=== PATIENT | male | born 1960 | race Caucasian/White ===

== ENCOUNTER 2023-12-26 13:56 | Emergency (ER) | payer OTHER, SELFPAY ==
[2023-12-26] VITALS (7 sets, daily range): BP systolic 149–182; BP diastolic 88–135
[2023-12-26] MEDS: ZOFRAN 4 MG IV (14:36)
[2023-12-26] MEDS: DILAUDID 1 MG IV ×2 (14:36→15:15)
[2023-12-26] MEDS: NSS 1000 IV (14:37)
[2023-12-26 14:48] LABS: % Basophils 0.4 % (0-2); % Eosinophils 0.6 % (0-6); % Immature Granulocytes 0.4 % (0-0.5); % Monocytes 7.2 % (1.7-9.3); % Neutrophils 76.4 % (42.2-75.2); Absolute Eosinophils 0.1 10^3/uL (0-0.7); Absolute Lymphocytes 1.6 10^3/uL (1.2-3.4); Absolute Monocytes 0.8 10^3/uL (0.1-0.6); Absolute Neutrophils 8.2 10^3/uL (1.4-6.5); Hematocrit 43.2 % (39.0-52.0); Hemoglobin 15.2 g/dL (13.0-18.0); Mean Corp Hgb Conc. 35.2 g/dL (33.0-37.0); Mean Corpuscular Hgb 32.2 pg (27.0-31.0); Mean Corpuscular Volume 91.5 fL (80.0-94.0); Mean Platelet Volume 10.2 fL (7.4-10.4); Nucleated Red Blood Cells % 0 % (-); Platelet Count 261 10^3/uL (130-400); Red Blood Cell Count 4.72 10^6/uL (4.70-6.10); Red Cell Dist. Width 12.4 % (11.5-14.5); White Blood Cell Count 10.7 10^3/uL (4.8-10.8)
[2023-12-26 15:02] LABS: ALT (SGPT) 26 U/L (0-50); AST (SGOT) 27 U/L (17-59); Albumin 4.7 g/dl (3.5-5.0); Alkaline Phosphatase 92 U/L (38-126); Blood Urea Nitrogen 17 mg/dl (9-20); Calcium 9.5 mg/dl (8.4-10.2); Carbon Dioxide 26 mmol/L (22-30); Chloride 102 mmol/L (98-107); Glucose 143 mg/dl (70-99); Sodium 137 mmol/L (135-145); Total Bilirubin 0.8 mg/dl (0.2-1.3); Total Protein 8.3 g/dl (6.3-8.2); eGFR > 60.00
--- NOTE | 2023-12-26 17:02 | ED.GENMED ---
History of Present Illness
General
Chief Complaint: Flank Pain
Source: patient and significant other
Exam Limitations: none
Time Seen by Provider: 12/26/23 14:20
Travel History
Have you had any contact with someone who has COVID-19?: No
Do you have any symptoms of coronavirus? Fever > 100 degrees, chills, cough, shortness of breath, sore throat, loss of taste or smell, muscle aches, or headache?: No
History of Present Illness
History of Present Illness:
63-year-old male presents with acute right-sided flank pain that began around 11 AM. Family states he did a little discomfort earlier in the week. Denies vomiting or fevers. Pain is constant but does seem to wax and wane. has had kidney stones in
past. significant other states that the pt has htn and high chol but has not taken his meds.
Past History
Past History
ED Past Medical History: HTN, Hypercholesterolemia and Other (kidney stones)
ED Past Surgical History: Orthopedic
Phy Exam
Physical Exam
Physical Exam:
CONSTITUTIONAL Patient alert and oriented to person, place and time. Severe pain distress. Vital signs reviewed.
HEAD atraumatic, normocephalic.
EYES eyelids normal to inspection, Pupils equally round and reactive to light, Extraocular muscles intact, Conjunctiva normal, Sclera normal.
NECK normal range of motion, Trachea midline, no jugular venous distention.
RESPIRATORY CHEST No respiratory distress noted, Chest expansion equal
ABDOMEN abdomen nontender, Bowel sounds normal. No distention.
BACK normal inspection, no obvious deformities, no CVA tenderness, no rash
UPPER EXTREMITY range of motion normal, Motor strength normal, no cyanosis, no edema.
LOWER EXTREMITY range of motion normal, Motor strength normal, no cyanosis, no edema.
NEURO Speech normal, No focal motor deficits, Isabelle coma scale 15, Memory normal, Cranial Nerves intact to screening exam.
SKIN pale, mildly diaphoretic
Course
Orders/Labs/Results
Orders:
Orders
12/26/23 14:25
CT Abd/pel Without Iv Or Oral Stat
Comment:
Reason For Exam: R flank pain
0.9% Sodium Chloride 1000 ml [Nss] 1,000 ml IV BOLUS
HYDROmorphone [Dilaudid] 1 mg IV NOW STA
Ondansetron Injectable [Zofran] 4 mg IV NOW STA
12/26/23 14:35
Complete Blood Count/With Diff Urgent
Comprehensive Metabolic Panel Urgent
12/26/23 15:10
HYDROmorphone [Dilaudid] 1 mg IV NOW STA
12/26/23 16:46
Ketorolac [Toradol] 15 mg IV NOW STA
12/26/23 19:23
Urinalysis Reflex To Culture Urgent
Date Specimen was Collected: 12/26/23
Time Specimen was Collected: 19:00
Urine Microscopic Reflex Cult Urgent
Abnormal Lab Results
12/26/23 12/26/23
14:35 19:23
MCH 32.2 H pg
(27.0-31.0)
Absolute Neuts (auto) 8.2 H 10^3/uL
(1.4-6.5)
Absolute Monos (auto) 0.8 H 10^3/uL
(0.1-0.6)
Neutrophils % 76.4 H %
(42.2-75.2)
Lymphocytes % 15.0 L %
(20.5-51.1)
Glucose 143 H mg/dl
(70-99)
Total Protein 8.3 H g/dl
(6.3-8.2)
Urine Ketones 2+ A
(Negative)
Ur Occult Blood Reflex 3+ A
(Negative)
Urine Glucose Trace A
(Negative)
12/26/23 14:35
12/26/23 14:35
Vital Signs
Initial and Last Documented VS:
Initial Vital Signs
Temp Pulse Resp BP Pulse Ox
97.8 F 72 20 168/100 95
12/26/23 13:58 12/26/23 13:58 12/26/23 13:58 12/26/23 13:58 12/26/23 13:58
Last Documented Vital Signs
Temp Pulse Resp BP Pulse Ox
97.8 F 87 20 164/88 97
12/26/23 13:58 12/26/23 18:30 12/26/23 18:30 12/26/23 18:00 12/26/23 18:30
MDM/Problems Addressed
MDM/Problems Addressed:
Ureterolithiasis
*Radiology
Radiology exam reviewed: preliminary read by ED provider (No obvious AAA) and radiology read reviewed
*Pulse Oximetry
Patient hypoxic: no
*Critical Care Note
Total Time (30-74mins, 75-104mins- exclusive of procedures): Not Applicable
Data Reviewed
Source: patient and significant other
Further Testing Considered But Not Given:
Considered IV contrast but suspected renal stone and CT performed without IV contrast
Patient Management
Escalation/DeEscalation of care consider admission/obs:
Feels much better. Urology follow-up. Flomax. Pain control
ED Attending Note
-
Portions of this chart may have been created with voice recognition software.� Occasional wrong word or��sound alike� substitutions may have occurred due to the inherent limitations of voice recognition software.
Discharge Plan
Departure
Patient Disposition: Home (Routine Discharge)
Date of Disposition: 12/26/23
Time of Disposition: 19:45
Patient with high blood pressure during this ER visit?: Yes
Discharge Problem:
Nephrolithiasis
Instructions: Kidney Stones (DC), How to Strain Your Urine, BLOOD PRESSURE, Narcotic Pain Medication
Prescriptions:
New
hydrocodone-acetaminophen 5-325 mg tablet
1 tab PO Q4H PRN (Reason: Pain) Qty: 14 0RF
tamsulosin [Flomax] 0.4 mg capsule
0.4 mg PO HS Qty: 20 0RF
No Action
atorvastatin 10 mg Tablet
10 mg PO DAILY
lisinopril 10 mg Tablet
10 mg PO DAILY
Referrals:
Anupam Pinto MD [Family Provider] -
Abhijit Daniels MD [Active] -
Activity Restrictions/Additional Instructions:
Please drink plenty fluids. Please see urology in the next 3 to 5 days for follow-up and reevaluation. Return immediately for chest pain, shortness of breath, palpitations, weakness of any kind or any other concerns. Your blood pressure was noted
to be elevated today. Is very important that you take your recommended medications daily as uncontrolled hypertension can lead to serious medical complications.
Interventions
Interventions:
*Risk Screen - Suicide Last Done: 12/26/23 14:20
*General Assessment Last Done: 12/26/23 14:20
*Neglect/Abuse Screening Last Done: 12/26/23 14:20
*ED COVID-19 Vaccine History Last Done: 12/26/23 13:58
VN-Tfqfch-Ruwvhcsupd Assessment Last Done: 12/26/23 15:00
ED-Male Genitourinary Assessment Last Done: 12/26/23 15:00
Discharge Date and Time
Print Language: SWEDISH
[2023-12-26] MEDS: TORADOL 15 MG IV (17:08)
[2023-12-26 19:31] LABS: Urine Albumin Negative (Neg - Trace); Urine Bilirubin Negative (Negative); Urine Character Clear (Clear); Urine Color Yellow; Urine Glucose Trace (Negative); Urine Ketone 2+ (Negative); Urine Leukocyte Negative (Negative); Urine Nitrite Negative (Negative); Urine Occult Blood 3+ (Negative); Urine Urobilinogen Negative (Neg - 1+)
[2023-12-26 19:52] LABS: Urine Bacteria Few (Negative); Urine Mucus Few; Urine Squamous Cell 0-2 /LPF (Few); Urine White Cell 0-2 /HPF (0-5)
[2023-12-26 19:55] LABS: Urine Hyaline Cast 0-2 /LPF (0-2)
== END 2023-12-26 20:24 | disposition home or self-care (01) ==
LOC: EMR 13:56
PROVIDERS: EMERGENCY PHYSICIAN Emergency Medicine; FAMILY PHYSICIAN Family Medicine
DX: N13.2 Hydronephrosis with renal and ureteral calculous obstruction (principal); I10 Essential (primary) hypertension; E78.00 Pure hypercholesterolemia, unspecified; Z87.442 Personal history of urinary calculi
CPT/HCPCS: 99284; 96374; 96375 ×2; 96361; 96376; 74176; 80053; 81003; 81015; 85025

== ENCOUNTER 2023-12-27 03:18 | Emergency (ER) | payer OTHER, SELFPAY ==
[2023-12-27 03:21] VITALS: BP 193/102
[2023-12-27 03:53] LABS: % Basophils 0.3 % (0-2); % Eosinophils 0.1 % (0-6); % Immature Granulocytes 0.3 % (0-0.5); % Lymphocytes 9.1 % (20.5-51.1); % Monocytes 6.9 % (1.7-9.3); % Neutrophils 83.3 % (42.2-75.2); Absolute Lymphocytes 1.4 10^3/uL (1.2-3.4); Absolute Monocytes 1.1 10^3/uL (0.1-0.6); Hematocrit 43.2 % (39.0-52.0); Hemoglobin 15.4 g/dL (13.0-18.0); Mean Corp Hgb Conc. 35.6 g/dL (33.0-37.0); Mean Corpuscular Hgb 32.1 pg (27.0-31.0); Mean Platelet Volume 10.1 fL (7.4-10.4); Nucleated Red Blood Cells % 0 % (-); Platelet Count 270 10^3/uL (130-400); Red Cell Dist. Width 12.6 % (11.5-14.5); White Blood Cell Count 15.5 10^3/uL (4.8-10.8)
[2023-12-27] MEDS: DILAUDID 1 MG IV ×2 (03:56→07:44)
[2023-12-27 04:09] LABS: ALT (SGPT) 25 U/L (0-50); AST (SGOT) 32 U/L (17-59); Albumin 4.8 g/dl (3.5-5.0); Alkaline Phosphatase 90 U/L (38-126); Blood Urea Nitrogen 19 mg/dl (9-20); Calcium 9.5 mg/dl (8.4-10.2); Carbon Dioxide 23 mmol/L (22-30); Chloride 102 mmol/L (98-107); Glucose 154 mg/dl (70-99); Potassium 4.1 mmol/L (3.5-5.1); Sodium 137 mmol/L (135-145); Total Bilirubin 0.9 mg/dl (0.2-1.3); Total Protein 8.5 g/dl (6.3-8.2); eGFR 51.35
[2023-12-27 04:12] VITALS: BMI 28.9
[2023-12-27 04:14] VITALS: BP 145/85
[2023-12-27] MEDS: NSS 500 IV (04:42)
--- NOTE | 2023-12-27 05:12 | ED.GENMED ---
History of Present Illness
General
Chief Complaint: Flank Pain
Source: patient, previous radiology exam (CT abdomen pelvis yesterday showing 4 mm stone distal right ureter with mild hydronephrosis.) and previous hospital records (ED visit yesterday for similar complaint.)
Time Seen by Provider: 12/27/23 04:13
Nursing documentation reviewed up to this point in time: agreed with
Travel History
Have you had any contact with someone who has COVID-19?: No
Do you have any symptoms of coronavirus? Fever > 100 degrees, chills, cough, shortness of breath, sore throat, loss of taste or smell, muscle aches, or headache?: No
History of Present Illness
History of Present Illness:
This is a 63-year-old gentleman with history of hypertension, hyperlipidemia, kidney stones who presented to this ED yesterday afternoon with complaints of right flank pain that began yesterday around 11 AM.
CAT scan showed a 4 mm stone distal right ureter with mild hydronephrosis.
He was pain-free and comfortable after a small IV dose of Toradol as well as IV dose of Dilaudid.
A prescription for Vicodin and tamsulosin were sent to his pharmacy however pharmacy was closed prior to patient's discharge.
He awoke around midnight with return of moderate right flank pain and was given ibuprofen 800 mg around 2 AM. Thus far only minimal improvement in pain. He denies nausea nor vomiting, denies diaphoresis, denies fever nor chills.
He denies dysuria and urgency nor gross hematuria.
He has successfully passed kidney stones in the past perhaps 5 to 6 years ago and has never required urologic intervention.
He does admit to significant, near daily soda consumption.
Past History
Past History
ED Past Medical History: HTN, Hypercholesterolemia and Other (kidney stones)
ED Past Surgical History: Orthopedic
Social History
Tobacco: Non-smoker
Alcohol: None
Personal:
Living: with family
Employment: Retired
Family History
Family History: Other (Noncontributory)
Phy Exam
Physical Exam
Physical Exam:
GENERAL: 63-year-old gentleman appears his stated age, bright and alert, pleasant, appears in no acute distress. is accompanying.
EYE: anicteric
NECK: Supple, nontender, no meningismus, no significant adenopathy.
ENT: oral mucosa is moist. No rhinorrhea.
CARDIAC: Regular rate and rhythm. no murmur.
LUNGS: Clear breath sounds bilaterally, no acute respiratory distress, no wheezes/rales/rhonchi
ABDOMEN: Rotund, soft, nondistended, without focal tenderness, no r/g, minimal right CVA tenderness with percussion. Normoactive BS.
NEUROLOGICAL: Alert and oriented x3, no focal neuro deficits. Gait is steady.
SKIN: Warm and dry, normal color, skin intact. No rash.
MUSCULOSKELETAL: No C/C/E. peripheral pulses are full and equal b/l. No palpable tenderness.
PSYCH: Normal and appropriate interaction.
Course
Orders/Labs/Results
Orders:
Orders
12/27/23 03:44
CMP [Comprehensive Metabolic Panel] Urgent
Complete Blood Count/With Diff Urgent
12/27/23 03:49
HYDROmorphone [Dilaudid] 1 mg IV NOW STA
12/27/23 04:21
0.9% Sodium Chloride 500 ml [Nss] 500 ml IV BOLUS
Abdomen Xray - 1 View [CR Abdomen - 1 View] Urgent
Comment:
Reason For Exam: R flank pain, known 4 mm stone distal R ureter
12/27/23 06:07
Hydrocodone 5/APAP 325 [[place] 5/325] 1 tablet PO NOW STA
12/27/23 06:33
Tamsulosin [Flomax] 0.4 mg PO NOW STA
12/27/23 07:15
HYDROmorphone [Dilaudid] 1 mg IV NOW STA
Abnormal Lab Results
12/27/23
03:44
WBC 15.5 H 10^3/uL
(4.8-10.8)
MCH 32.1 H pg
(27.0-31.0)
Absolute Neuts (auto) 13.0 H 10^3/uL
(1.4-6.5)
Absolute Monos (auto) 1.1 H 10^3/uL
(0.1-0.6)
Neutrophils % 83.3 H %
(42.2-75.2)
Lymphocytes % 9.1 L %
(20.5-51.1)
Creatinine 1.5 H mg/dL
(0.7-1.3)
Glucose 154 H mg/dl
(70-99)
Total Protein 8.5 H g/dl
(6.3-8.2)
12/27/23 03:44
12/27/23 03:44
Vital Signs
Initial and Last Documented VS:
Initial Vital Signs
Temp Pulse Resp BP Pulse Ox
97.4 F 82 24 193/102 97
12/27/23 03:21 12/27/23 03:21 12/27/23 03:21 12/27/23 03:21 12/27/23 03:21
Last Documented Vital Signs
Temp Pulse Resp BP Pulse Ox
97.4 F 70 20 145/85 97
12/27/23 03:21 12/27/23 04:14 12/27/23 04:14 12/27/23 04:14 12/27/23 03:21
MDM/Problems Addressed
Differential Diagnosis Includes:
Patient presents with recurrent renal colic related to known 4 mm distal right ureteral stone.
Currently pain-free and comfortable after an IV dose of Dilaudid.
Labs show mild uptrend in white blood cell count from 10.7 yesterday afternoon to now 15.5. Likely stress response. Patient has had no symptoms of UTI, no fever nor chills.
Creatinine has trended up from 1.0 to now 1.5. This may be attributed to ureteral obstruction compounded by NSAID use.
Urinalysis from yesterday showed 11-15 RBCs but no evidence of UTI with only 0-2 WBCs, few bacteria.
Will continue to observe in the ED, initiate IV fluids and plan for KUB film to assess for stone migration/position.
*Radiology
Radiology exam reviewed: preliminary read by ED provider (KUB film shows 4 mm rounded calcification right lower hemipelvis just proximal to the urinary bladder. Calcification appears to have migrated approximately 2 cm distally compared to CT from
yesterday.)
*Pulse Oximetry
Patient hypoxic: no
*Critical Care Note
Total Time (30-74mins, 75-104mins- exclusive of procedures): Not Applicable
Update Note
Update Note:
12/27/2023 0716 AM
Patient had been resting comfortably, sleeping when undisturbed but reports return of pain, thus far no improvement after an oral dose of Vicodin which was given approximately 30 minutes ago. Pain has worsened after he got up to the bathroom and
has voided.
He denies nausea nor vomiting but does admit to feeling somewhat restless.
Will give an IV dose of Dilaudid and continue to observe.
If pain persists, returns we will plan to contact urology.
ED Attending Note
-
Portions of this chart may have been created with voice recognition software.� Occasional wrong word or��sound alike� substitutions may have occurred due to the inherent limitations of voice recognition software.
Discharge Plan
Departure
Discharge Problem:
Calculus of distal right ureter
Instructions: Kidney Stones (DC), How to Strain Your Urine
Prescriptions:
No Action
atorvastatin 10 mg Tablet
10 mg PO DAILY
lisinopril 10 mg Tablet
10 mg PO DAILY
hydrocodone-acetaminophen 5-325 mg tablet
1 tab PO Q4H PRN (Reason: Pain) Qty: 14 0RF
tamsulosin [Flomax] 0.4 mg capsule
0.4 mg PO HS Qty: 20 0RF
Referrals:
Anupam Pinto MD [Family Provider] -
Abhijit Daniels MD [Active] - Call in 1-3 days for appt
Interventions
Interventions:
*Risk Screen - Suicide Last Done: 12/27/23 03:21
*Neglect/Abuse Screening Last Done: 12/27/23 03:21
*ED COVID-19 Vaccine History Last Done: 12/27/23 03:21
EC-Orhutu-Rxduskcnag Assessment Last Done: 12/27/23 04:28
ED-Male Genitourinary Assessment Last Done: 12/27/23 04:28
Discharge Date and Time
Print Language: PRYDEINIG
[2023-12-27] MEDS: NORCO 5/325 1 TABLET PO (06:17)
[2023-12-27] MEDS: FLOMAX 0.400000000000000022 MG PO (06:39)
[2023-12-27 07:45] VITALS: BP 160/86
[2023-12-27 10:45] VITALS: BP 159/89
== END 2023-12-27 10:45 | disposition home or self-care (01) ==
LOC: EMR 03:18
PROVIDERS: EMERGENCY PHYSICIAN Emergency Medicine; FAMILY PHYSICIAN Family Medicine
DX: N20.1 Calculus of ureter (principal); I10 Essential (primary) hypertension; E78.00 Pure hypercholesterolemia, unspecified; Z87.442 Personal history of urinary calculi
CPT/HCPCS: 99284; 96374; 96361; 96376; 74018; 80053; 85025